=== PATIENT | female | born 1950 | race Caucasian/White ===

== ENCOUNTER 2018-08-24 21:28 | Observation (INO) | payer OTHER ==
[~2018-08-24] VITALS: Ht 162.6 cm; Wt 68.5 kg
[2018-08-24 21:44] VITALS: Ht 162.6 cm; Wt 68.5 kg
[2018-08-24 22:42] LABS: BASOPHIL % 0.9 % (0-2); PLATELET COUNT 254 x10^3mcL (130-400); RED CELL DISTRIBUTION WIDTH 13.2 % (11.5-14.5)
[2018-08-24 22:49] LABS: CALCIUM 9.8 mg/dL (8.5-10.1); CARBON DIOXIDE 30.5 mmol/L (21-32); POTASSIUM SERUM 3.1 mmol/L (3.5-5.1)
[2018-08-24 22:54] LABS: ALBUMIN 3.8 g/dL (3.4-5.0); BILIRUBIN TOTAL 0.44 mg/dL (0.20-1.00); TOTAL PROTEIN, SERUM 8.1 g/dL (6.4-8.2)
[2018-08-24 22:55] LABS: microscopic required? NO
[2018-08-24 23:00] LABS: UA SPECIFIC GRAVITY <=1.005 (1.005-1.035); urine erythrocyte NEGATIVE (NEGATIVE)
[2018-08-25] VITALS (8 sets, daily range): BP systolic 125–199; BP diastolic 73–100
[2018-08-25] MEDS ORDERED: ATENOLOL100 MG PO (01:53)
[2018-08-25] MEDS ORDERED: COZAAR100 MG PO (01:53)
[2018-08-25] MEDS ORDERED: GLUCOPHAGE XR750 MG PO (01:54)
[2018-08-25] MEDS ORDERED: PRA40 (01:54)
[2018-08-25 02:55] LABS: CHOLESTEROL 212 mg/dL (<200); CHOLESTEROL/HDL RATIO 7.9; HDL CHOLESTEROL 27 mg/dL (40-60); TRIGLYCERIDES 759 mg/dL (<150)
[2018-08-25 07:55] LABS: PLATELET COUNT 224 x10^3mcL (130-400); RED CELL DISTRIBUTION WIDTH 13.6 % (11.5-14.5)
[2018-08-25 08:10] LABS: CALCIUM 9.3 mg/dL (8.5-10.1); CARBON DIOXIDE 26.8 mmol/L (21-32); CHLORIDE SERUM 105 mmol/L (98-107); CREATININE SERUM 0.9 mg/dL (0.6-1.0); GFR1 > 60 mL/min; GLUCOSE SERUM 120 mg/dL (74-106); MAGNESIUM 1.9 mg/dL (1.8-2.4); PHOSPHOROUS 3.8 mg/dL (2.5-4.9); POTASSIUM SERUM 3.7 mmol/L (3.5-5.1); SODIUM SERUM 143 mmol/L (136-145)
[2018-08-26 05:43] VITALS: BP 126/76
[2018-08-26 06:41] LABS: BASOPHIL % 0.6 % (0-2); PLATELET COUNT 240 x10^3mcL (130-400); RED CELL DISTRIBUTION WIDTH 13.8 % (11.5-14.5)
[2018-08-26 06:45] LABS: CALCIUM 9.9 mg/dL (8.5-10.1); CARBON DIOXIDE 30.1 mmol/L (21-32); MAGNESIUM 1.9 mg/dL (1.8-2.4); PHOSPHOROUS 3.9 mg/dL (2.5-4.9); POTASSIUM SERUM 4.2 mmol/L (3.5-5.1)
[2018-08-26 09:13] VITALS: BP 145/80
[2018-08-26] MEDS ORDERED: PRA20 PO (13:30)
[2018-08-26] MEDS ORDERED: COZAAR100 MG PO (13:32)
[2018-08-26] MEDS ORDERED: PRO60 PO (13:37)
[2018-08-26 14:29] VITALS: BP 145/80
== END 2018-08-26 14:45 | disposition home or self-care (01) | DRG 305 ==
LOC: ED 21:28 → DU 08-25 02:08 → MU 08-26 13:44
PROVIDERS: Emergency Medicine; ADMIT General Practice
DX: I16.0 Hypertensive urgency (principal); E87.1 Hypo-osmolality and hyponatremia; I10 Essential (primary) hypertension; R00.1 Bradycardia, unspecified; E11.65 Type 2 diabetes mellitus with hyperglycemia; E78.5 Hyperlipidemia, unspecified; Z79.84 Long term (current) use of oral hypoglycemic drugs; Z68.27 Body mass index [BMI] 27.0-27.9, adult
CPT/HCPCS: 82962; 83880; 85378; G0378; Q0092; Q0162